=== PATIENT | male | born 1950 | race Caucasian/White ===

== ENCOUNTER 2020-03-17 11:53 | Inpatient (IN) | payer MEDICARE ==
[~2020-03-17] VITALS: Ht 182.9 cm; Wt 90.7 kg
[~2020-03-17 11:53] MED LIST changes: -CALCIUM 600 +1 EA13 PO; -CITRACAL + D E1 EACH PO; -DAILY VITE1 EACH PO; -HUMALOG 10100 UNITS/ SC; -HYDROCODON-ACE1 EAC2 PO; -HYDROCODONE-AC1 EAC1 PO; -JANUVIA25 MG PO; -LANTUS INS100 UTS/M1 SC; -MEDROL DOSEPAK 24 MG PO; -MELATONIN3 MG PO; -PROTONIX 40 MG40 M1 PO; -SODIUM BICARBO650 M1 PO; -ZESTRIL 40 MG T40 MG PO; -ZYVOX600 MG PO
[2020-03-17 12:10] LABS: RED BLOOD COUNT 3.1 M/UL (4.20-5.50); WHITE BLOOD COUNT 17.6 K/UL (4.5-11.0)
[2020-03-17 12:35] LABS: BUN/CREATININE RATIO 16 (0-10)
[2020-03-17] MEDS ORDERED: ZESTRIL 40 MG T40 MG PO (16:11)
[2020-03-17] MEDS ORDERED: LOPRESSOR 25 MG25 MG PO (16:12)
[2020-03-17] MEDS ORDERED: GLUCOPHAGE850 MG PO (16:12)
[2020-03-17] MEDS ORDERED: FLOMAX 0.4 MG0.4 MG PO (16:12)
[2020-03-17] MEDS ORDERED: AMARYL2 MG PO (16:13)
[2020-03-17] MEDS ORDERED: LIPITOR TAB 1010 MG PO (16:14)
[2020-03-17] MEDS ORDERED: DAILY VITE1 EACH PO (16:15)
[2020-03-17 18:42] LABS: BUN/CREATININE RATIO 17 (0-10)
[2020-03-18 02:11] LABS: HEMOGLOBIN 7.9 gm/dl (14.0-17.5); RED BLOOD COUNT 3.08 M/UL (4.20-5.50)
[2020-03-18 02:16] LABS: WHITE BLOOD COUNT 11.9 K/UL (4.5-11.0)
[2020-03-18 02:36] LABS: BUN/CREATININE RATIO 19 (0-10)
--- NOTE | 2020-03-18 18:43 | NUR ---
patient have dried feces all over his bilateral lower extrimities, in between toes, and bilateral finger nails. when patient arrived from the floor patient was on this condition. MORENA- alanna provided personal care to patient. patient satisfied and pleased with personal care.
[2020-03-19 04:12] LABS: HEMOGLOBIN 7.1 gm/dl (14.0-17.5); WHITE BLOOD COUNT 9.3 K/UL (4.5-11.0)
[2020-03-19 04:15] LABS: RED BLOOD COUNT 2.71 M/UL (4.20-5.50)
[2020-03-19 17:12] LABS: HEMOGLOBIN 9.3 gm/dl (14.0-17.5)
--- NOTE | 2020-03-19 23:04 | NUR ---
03/19/20 @ 1901 - MD NOTIFIED OF CHANGE IN PATIENT'S STATUS, B/P 87/54, HR 125, O2 SAT 85%, RESP RATE 20 AND TEMP 98.O F ORAL. MD INFORMED OF PATIENT'S MEDICAL HX AND ADMITTING DX. BG - 156. MD ORDERED 1 LITER BOLUS OF NS. 03/19/20 @ 4116 - MD NOTIFIED OF PATIENT'S STATUS. B/P DECREASED TO 77/50, HR REMAINS IN 120S. MINE INSPECTOR AT BEDSIDE WITH PATIENT. MD GIVES ORDERS TO TRANSFER TO ICU, START LEVOPHED DRIP AND TRANSFUSE 1 UNIT OF PRBC, NS @ 150ML/HR.
[2020-03-20 02:40] LABS: HEMOGLOBIN 9.1 gm/dl (14.0-17.5)
[2020-03-20 02:41] LABS: RED BLOOD COUNT 3.51 M/UL (4.20-5.50); WHITE BLOOD COUNT 24.2 K/UL (4.5-11.0)
[2020-03-20 09:30] LABS: HEMOGLOBIN 9.4 gm/dl (14.0-17.5)
[2020-03-21 02:07] LABS: HEMOGLOBIN 9.1 gm/dl (14.0-17.5); RED BLOOD COUNT 3.7 M/UL (4.20-5.50)
[2020-03-21 02:08] LABS: WHITE BLOOD COUNT 33.4 K/UL (4.5-11.0)
[2020-03-22 11:19] LABS: HEMOGLOBIN 8.2 gm/dl (14.0-17.5); RED BLOOD COUNT 3.18 M/UL (4.20-5.50); WHITE BLOOD COUNT 19.4 K/UL (4.5-11.0)
[2020-03-23 07:41] LABS: HEMOGLOBIN 7.9 gm/dl (14.0-17.5); RED BLOOD COUNT 3.08 M/UL (4.20-5.50); WHITE BLOOD COUNT 15.7 K/UL (4.5-11.0)
[2020-03-24 10:08] LABS: HEMOGLOBIN 8.3 gm/dl (14.0-17.5); RED BLOOD COUNT 3.25 M/UL (4.20-5.50)
[2020-03-25 07:04] LABS: HEMOGLOBIN 8.1 gm/dl (14.0-17.5); RED BLOOD COUNT 3.15 M/UL (4.20-5.50); WHITE BLOOD COUNT 10.3 K/UL (4.5-11.0)
[2020-03-25 07:11] LABS: ANTISTREPTOLYSIN O AB 209.3 IU/mL (0.0-200.0); COMPLEMENT C3, SERUM 94 mg/dL (82-167); COMPLEMENT C4, SERUM 19 mg/dL (12-38)
[2020-03-25 09:14] LABS: HBSAG SCREEN Negative (Negative); HEP B CORE AB, TOT Negative (Negative); HEP C VIRUS AB <0.1 (0.0-0.9)
[2020-03-25 14:14] LABS: ANTI-DSDNA ANTIBODIES <1 IU/mL (0-9)
[2020-03-25 15:14] LABS: A/G RATIO 0.7 (0.7-1.7); ALBUMIN 1.9 g/dL (2.9-4.4); ALPHA-1-GLOBULIN 0.4 g/dL (0.0-0.4); ALPHA-2-GLOBULIN 0.8 g/dL (0.4-1.0); BETA GLOBULIN 0.7 g/dL (0.7-1.3); GAMMA GLOBULIN 1.1 g/dL (0.4-1.8); GLOBULIN, TOTAL 2.9 g/dL (2.2-3.9); IMMUNOGLOBULIN A, QN, SERUM 296 mg/dL (61-437); IMMUNOGLOBULIN G, QN, SERUM 1032 mg/dL (603-1613); IMMUNOGLOBULIN M, QN, SERUM 72 mg/dL (20-172); M-SPIKE Comment: g/dL (Not Observed); PROTEIN, TOTAL, SERUM 4.8 g/dL (6.0-8.5)
[2020-03-26 15:14] LABS: ATYPICAL PANCA <1:20 titer (Neg:<1:20); PERINUCLEAR (P-ANCA) <1:20 titer (Neg:<1:20)
[2020-03-27] MEDS ORDERED: MELATONIN3 MG PO (11:36)
[2020-03-27 16:11] LABS: HEMATOCRIT 25.4 % (37.5-51.0)
[2020-03-28 03:28] LABS: RED BLOOD COUNT 2.72 M/UL (4.20-5.50); WHITE BLOOD COUNT 7.1 K/UL (4.5-11.0)
[2020-03-28 03:30] LABS: HEMOGLOBIN 6.8 gm/dl (14.0-17.5)
[2020-03-28 10:47] LABS: ADENOVIRUS F 40/41 Not Detected (Negative); ASTROVIRUS Not Detected (Negative); CAMPYLOBACTER Not Detected (Negative); CLOSTRIDIUM DIFFICILE TOX A/B Not Detected (Negative); CRYPTOSPORIDIUM Not Detected (Negative); E.COLI 0157 Not Detected (Negative); ENTAMOEBA HISTOLYTICA Not Detected (Negative); ENTEROAGGREGATIVE E.COLI (EAEC Not Detected (Negative); ENTEROPATHOGENIC E.COLI (EPEC) Not Detected (Negative); ENTEROTOXIGENIC E.COLI (ETEC) Not Detected (Negative); GIARDIA LAMBLIA Not Detected (Negative); NOROVIRUS GI/GII Not Detected (Negative); PLESIOMONAS SHIGELLOIDES Not Detected (Negative); ROTOVIRUS A Not Detected (Negative); SALMONELLA Not Detected (Negative); SAPOVIRUS Not Detected (Negative); SHIG/ENTEROINVAS.ECOLI (EIEC) Not Detected (Negative); SHIGA-LIK TOX.PRO.E.COLI (STEC Not Detected (Negative); VIBRIO Not Detected (Negative); VIBRIO CHOLERAE Not Detected (Negative); YERSINIA ENTEROCOLITICA Not Detected (Negative)
[2020-03-28 15:17] LABS: HEMOGLOBIN 7.9 gm/dl (14.0-17.5)
[2020-03-29 06:58] LABS: HEMOGLOBIN 7.8 gm/dl (14.0-17.5); RED BLOOD COUNT 3.03 M/UL (4.20-5.50); WHITE BLOOD COUNT 6.4 K/UL (4.5-11.0)
[2020-03-30 12:02] LABS: HEMOGLOBIN 8.2 gm/dl (14.0-17.5); RED BLOOD COUNT 3.18 M/UL (4.20-5.50); WHITE BLOOD COUNT 6.9 K/UL (4.5-11.0)
--- NOTE | 2020-03-30 17:11 | NUR ---
INFORMED DR LOWERY OF PT'S BLOODY STOOLS AND LABORED BREATHING, NEW ORDER REC'D
--- NOTE | 2020-03-31 00:45 | NUR ---
NOTICE PT DESAT ON THE MONITOR, ENTERED ROOM, PT WAS BREATHING, SNORING, AND BEGAN TO ANDREW DOWN TO THE 40'S. TRIED TO AROUSE PT VIA STERNAL RUBBING TO NO RESPONSE. PINPOINT PUPILS. PT ANDREW'ED TO 30'S, CALLED RAPID RESPONSE. NOTICED PT STOPPED BREATHING, CHECKED FOR PULSE, NONE, AND AR LIU INITATED CPR AT 0028. EFRAIN PHAM WAS CALLED AT SAME TIME. PT WAS ROLLED ONTO BOARD, PADS WERE PLACED AND SUCTION WAS SET UP. VENTILATION BEGAN 0029, CODE TEAM ARRIVED ON SITE CONSITING OF JESE FROM ICU, MARCELA WINKLER FROM ER, AND DR GUZMAN, WELL AIDA CLEMENTS, AND BRIAN FROM RESPIRATORY. PT SHOWED ASYSTOLE ON THE ZOLLS MONITOR. FIRST EPI WAS PUSHED AT 0030, FOLLOWED BY MORE COMPRESSIONS AND VENTILATION. ONE AMP OF BICARB WAS PUSHED AT 0032, FOLLOWED BY MORE EPI AT 0034. PULSE CHECK CAME BACK WITH A PULSE AT 0034. COMPRESSIONS STOPPED, PT NOT BREATHING ON HIS OWN. 40 UNITS OF VASOPRESSIN WAS GIVEN PRIOR TO PULSE CHECK, AT 0034. PT WAS SUCCESSFULLY INTUBATED AT 0035 BY JANUSZ GUZMAN TO CONFIRM PLACEMENT. ATROPINE PUSHED AT 0038. EKG GOTTEN AT 0040. PT WAS MOVED TO ICU BY 0045
--- NOTE | 2020-03-31 00:55 | NUR ---
REPORT GIVEN TO ANA LILIA IN ICU,
[2020-03-31 01:09] LABS: RED BLOOD COUNT 3.15 M/UL (4.20-5.50)
[2020-03-31 01:32] LABS: BUN/CREATININE RATIO 10 (0-10)
[2020-03-31 11:59] LABS: HEMOGLOBIN 7.3 gm/dl (14.0-17.5); RED BLOOD COUNT 2.86 M/UL (4.20-5.50)
[2020-03-31 12:07] LABS: WHITE BLOOD COUNT 9.6 K/UL (4.5-11.0)
[2020-03-31 13:10] LABS: M-SPIKE, % Not Observed % (Not Observed)
[2020-04-01 05:48] LABS: BUN/CREATININE RATIO 10 (0-10)
[2020-04-01 12:32] LABS: HEMOGLOBIN 7.6 gm/dl (14.0-17.5); RED BLOOD COUNT 2.98 M/UL (4.20-5.50); WHITE BLOOD COUNT 10.6 K/UL (4.5-11.0)
[2020-04-02 05:19] LABS: RED BLOOD COUNT 2.74 M/UL (4.20-5.50)
[2020-04-02 05:22] LABS: HEMOGLOBIN 6.6 gm/dl (14.0-17.5)
[2020-04-02 18:08] LABS: HEMOGLOBIN 7.7 gm/dl (14.0-17.5)
[2020-04-03 05:57] LABS: HEMOGLOBIN 8.1 gm/dl (14.0-17.5); WHITE BLOOD COUNT 8.5 K/UL (4.5-11.0)
[2020-04-03 05:59] LABS: RED BLOOD COUNT 3.11 M/UL (4.20-5.50)
[2020-04-04 05:05] LABS: HEMOGLOBIN 8.1 gm/dl (14.0-17.5); RED BLOOD COUNT 3.14 M/UL (4.20-5.50); WHITE BLOOD COUNT 7.4 K/UL (4.5-11.0)
[2020-04-05 05:00] LABS: HEMOGLOBIN 8.3 gm/dl (14.0-17.5); RED BLOOD COUNT 3.21 M/UL (4.20-5.50); WHITE BLOOD COUNT 7.3 K/UL (4.5-11.0)
[2020-04-06 05:53] LABS: HEMOGLOBIN 8.5 gm/dl (14.0-17.5); RED BLOOD COUNT 3.3 M/UL (4.20-5.50); WHITE BLOOD COUNT 8.4 K/UL (4.5-11.0)
[2020-04-06 16:45] LABS: HEMOGLOBIN 8.3 gm/dl (14.0-17.5)
[2020-04-07 05:10] LABS: HEMOGLOBIN 8.4 gm/dl (14.0-17.5); RED BLOOD COUNT 3.26 M/UL (4.20-5.50); WHITE BLOOD COUNT 10.4 K/UL (4.5-11.0)
[2020-04-07 11:00] LABS: HEMOGLOBIN 8.4 gm/dl (14.0-17.5)
[2020-04-08 04:52] LABS: HEMOGLOBIN 8.5 gm/dl (14.0-17.5); RED BLOOD COUNT 3.29 M/UL (4.20-5.50)
[2020-04-09 05:12] LABS: HEMOGLOBIN 7.7 gm/dl (14.0-17.5); RED BLOOD COUNT 3.02 M/UL (4.20-5.50); WHITE BLOOD COUNT 9.1 K/UL (4.5-11.0)
[2020-04-10 03:39] LABS: HEMOGLOBIN 7.8 gm/dl (14.0-17.5); RED BLOOD COUNT 3.06 M/UL (4.20-5.50); WHITE BLOOD COUNT 7.5 K/UL (4.5-11.0)
[2020-04-11 02:59] LABS: WHITE BLOOD COUNT 5.7 K/UL (4.5-11.0)
[2020-04-11 03:22] LABS: RED BLOOD COUNT 2.75 M/UL (4.20-5.50)
[2020-04-11 03:23] LABS: HEMOGLOBIN 7.1 gm/dl (14.0-17.5)
[2020-04-12 02:19] LABS: RED BLOOD COUNT 2.63 M/UL (4.20-5.50); WHITE BLOOD COUNT 6.9 K/UL (4.5-11.0)
[2020-04-12 02:32] LABS: HEMOGLOBIN 6.6 gm/dl (14.0-17.5)
[2020-04-13 02:26] LABS: RED BLOOD COUNT 3.43 M/UL (4.20-5.50); WHITE BLOOD COUNT 10.3 K/UL (4.5-11.0)
[2020-04-13 19:52] LABS: HEMOGLOBIN 8.9 gm/dl (14.0-17.5); RED BLOOD COUNT 3.33 M/UL (4.20-5.50); WHITE BLOOD COUNT 9.1 K/UL (4.5-11.0)
[2020-04-14 02:27] LABS: HEMOGLOBIN 9.1 gm/dl (14.0-17.5); RED BLOOD COUNT 3.42 M/UL (4.20-5.50); WHITE BLOOD COUNT 9.8 K/UL (4.5-11.0)
[2020-04-15 02:20] LABS: HEMOGLOBIN 9.3 gm/dl (14.0-17.5); RED BLOOD COUNT 3.42 M/UL (4.20-5.50); WHITE BLOOD COUNT 9.6 K/UL (4.5-11.0)
--- NOTE | 2020-04-15 15:36 | NUR ---
SPOKE WITH DR ASHER AND DR WELSH REGARDING PATIENT CONTINUING TO HAVE BLOODY STOOLS. HGB HAS BEEN CHECKED SINCE THEN AND ANOTHER RECHECK IS IN FOR [address] ASHER STATES THAT HE WILL NOT BE ABLE TO DO EGD TODAY OR TOMORROW DUE TO WEATHER AND WANTS THE PATIENT TO HAVE A 2.4 GRAM DIET UNTIL HE CAN HAVE THE PROCEDURE DONE AND HE WILL ORDER A CLEAR LIQUID DIET ONCE AGAIN BEFORE PROCEDURE IS TO BE DONE. A NURSING COMMUNICATION ORDER HAS BEEN PUT IN PER DR WELSH FOR THE PATIENT AND IT STATES THAT IF HGB DROPS ONE POINT FROM HGB NOW WHICH IS 9.6 OR IF PATIENT HAS MORE BLOODY BOWEL MOVEMENTS AND BECOMES HYPOTENSIVE THEN WE ARE TO TRANSFUSE 1 UNIT OF BLOOD. THE PATIENT HAS BEEN MADE AWARE OF THE ABOVE AND HAS STATED THAT HE UNDERSTANDS. PATIENT HAS WORKED WITH PT TODAY AND DONE WELL, GOT UP TO THE CHAIR AND REMAINS SITTING IN THE CHAIR AT THIS TIME. NO DISTRESS NOTED, PATIENT TOLERATED WELL. WILL CONTINUE TO MONITOR PATIENTS HGB AND NOTIFY MD IF NEEDED. CALL LAW WITHIN REACH.
[2020-04-17 09:02] LABS: HEMOGLOBIN 9.4 gm/dl (14.0-17.5); RED BLOOD COUNT 3.55 M/UL (4.20-5.50); WHITE BLOOD COUNT 11.3 K/UL (4.5-11.0)
[2020-04-20 08:32] LABS: RED BLOOD COUNT 3.42 M/UL (4.20-5.50); WHITE BLOOD COUNT 10.1 K/UL (4.5-11.0)
--- NOTE | 2020-04-20 10:33 | NUR ---
PT REFUSED GOLYTELY X 3 ATTEMPTS. EXPLAINED TO PATIENT WE COULD PLACE A NG TUBE SO HE WOULD NOT HAVE TO DRINK GOLYTELY AND HE STATES "THATS NOT AN OPTION EITHER". I EXPLAINED IMPORTANCE OF GOLYTELY AND PT STATES HE KNOWS AND WOULD THINK ABOUT IT BUT FOR NOW IT WAS A NO.
--- NOTE | 2020-04-20 13:22 | NUR ---
PT AGREES TO DRINK GOLYTELY A/O NOW, DR. ASHER ON FLOOR AND STATES GO AHEAD AND GIVE PER PREVIOUS ORDER
[2020-04-21 03:21] LABS: HEMOGLOBIN 8.8 gm/dl (14.0-17.5); RED BLOOD COUNT 3.34 M/UL (4.20-5.50); WHITE BLOOD COUNT 11.2 K/UL (4.5-11.0)
[2020-04-21 09:24] LABS: HEMOGLOBIN 10.3 gm/dl (14.0-17.5)
== END 2020-04-22 15:47 | disposition home or self-care (01) | DRG 698 ==
LOC: ER1 11:53 → CDU 14:04 → PROG CARE 14:04 → CCU 14:04 → PROG CARE 17:30 → M/S 03-18 11:25 → CCU 03-19 22:53 → PROG CARE 03-26 16:21 → CCU 03-31 01:39 → PROG CARE 04-10 09:08
PROVIDERS: Family Medicine; Internal Medicine; Internal Medicine Nephrology; Internal Medicine Pulmonary Disease; Physician Assistant; Registered Nurse; ADMIT Internal Medicine
PROC: 30233N1 Transfusion of Nonautologous Red Blood Cells into Peripheral Vein, Percutaneous Approach (ICD-10-PCS; 2020-03-19)
PROC: 30233N1 Transfusion of Nonautologous Red Blood Cells into Peripheral Vein, Percutaneous Approach (ICD-10-PCS; 2020-03-28)
PROC: 0BH17EZ Insertion of Endotracheal Airway into Trachea, Via Natural or Artificial Opening (ICD-10-PCS; 2020-03-31)
PROC: 5A1945Z Respiratory Ventilation, 24-96 Consecutive Hours (ICD-10-PCS; 2020-03-31)
PROC: 30233N1 Transfusion of Nonautologous Red Blood Cells into Peripheral Vein, Percutaneous Approach (ICD-10-PCS; 2020-04-02)
PROC: 02HV33Z Insertion of Infusion Device into Superior Vena Cava, Percutaneous Approach (ICD-10-PCS; principal; 2020-04-08)
PROC: B548ZZA Ultrasonography of Superior Vena Cava, Guidance (ICD-10-PCS; 2020-04-08)
PROC: 30233N1 Transfusion of Nonautologous Red Blood Cells into Peripheral Vein, Percutaneous Approach (ICD-10-PCS; 2020-04-12)
PROC: 0DJ08ZZ Inspection of Upper Intestinal Tract, Via Natural or Artificial Opening Endoscopic (ICD-10-PCS; 2020-04-18)
PROC: 0DBP8ZX Excision of Rectum, Via Natural or Artificial Opening Endoscopic, Diagnostic (ICD-10-PCS; 2020-04-18)
PROC: 0DBK8ZZ Excision of Ascending Colon, Via Natural or Artificial Opening Endoscopic (ICD-10-PCS; 2020-04-21)
PROC: 0DBN8ZZ Excision of Sigmoid Colon, Via Natural or Artificial Opening Endoscopic (ICD-10-PCS; 2020-04-21)
DX: T83.511A Infection and inflammatory reaction due to indwelling urethral catheter, initial encounter (principal); A41.9 Sepsis, unspecified organism; I50.23 Acute on chronic systolic (congestive) heart failure; J96.01 Acute respiratory failure with hypoxia; A41.51 Sepsis due to Escherichia coli [E. coli]; A41.52 Sepsis due to Pseudomonas; J81.0 Acute pulmonary edema; I46.9 Cardiac arrest, cause unspecified; N17.0 Acute kidney failure with tubular necrosis; N17.9 Acute kidney failure, unspecified; I13.0 Hypertensive heart and chronic kidney disease with heart failure and stage 1 through stage 4 chronic kidney disease, or unspecified chronic kidney disease; E87.1 Hypo-osmolality and hyponatremia; E87.2 Acidosis; K92.1 Melena; N13.30 Unspecified hydronephrosis; C20 Malignant neoplasm of rectum; N30.00 Acute cystitis without hematuria; D62 Acute posthemorrhagic anemia; E87.3 Alkalosis; R00.0 Tachycardia, unspecified; R80.9 Proteinuria, unspecified; Z20.822 Contact with and (suspected) exposure to COVID-19; E87.6 Hypokalemia; E11.22 Type 2 diabetes mellitus with diabetic chronic kidney disease; N18.30 Chronic kidney disease, stage 3 unspecified; E87.70 Fluid overload, unspecified; N40.1 Benign prostatic hyperplasia with lower urinary tract symptoms; I48.0 Paroxysmal atrial fibrillation; N13.9 Obstructive and reflux uropathy, unspecified; K57.90 Diverticulosis of intestine, part unspecified, without perforation or abscess without bleeding; N32.0 Bladder-neck obstruction; D50.9 Iron deficiency anemia, unspecified; R33.8 Other retention of urine; E78.5 Hyperlipidemia, unspecified; D47.2 Monoclonal gammopathy; D63.1 Anemia in chronic kidney disease; I95.9 Hypotension, unspecified; Z80.9 Family history of malignant neoplasm, unspecified; Z79.899 Other long term (current) drug therapy; Z83.3 Family history of diabetes mellitus; Z84.1 Family history of disorders of kidney and ureter
CPT/HCPCS: ECHO; 31500; 36415; 36430; 36600; 71045; 71046; 72195; 80048; 80053; 80069; 80202; 81001; 82272; 82378; 82436; 82533; 82550; 82553; 82570; 82607; 82728; 82747; 82784; 82803; 82962; 83010; 83520; 83540; 83550; 83605; 83615; 83735; 83883; 83921; 84100; 84132; 84133; 84155; 84156; 84165; 84166; 84300; 84439; 84443; 84484; 85014; 85018; 85025; 85027; 85045; 85610; 85730; 86038; 86060; 86140; 86160; 86162; 86225; 86256; 86334; 86335; 86704; 86706; 86708; 86803; 86850; 86900; 86901; 86920; 87040; 87070; 87077; 87086; 87186; 87205; 87340; 87449; 87507; 89050; 92950; 93005; 93306; 94002; 94003; 94640; 94660; 94760; 94762; 96365; 97110; 97110-GP-CQ; 97116; 97116-GP-CQ; 97163; 97164; 97165; 97168; 97530; 97530-GP-CQ; 97535; 99285; A6212; C9113; J0171; J0461; J0696; J1120; J1205; J1644; J1720; J1940; J1956; J2060; J2250; J2270; J2543; J2704; J3010; J3370; J3475; J7030; J7040; J7050; J7070; P9016; P9047; U0002

== ENCOUNTER → 2020-03-17 | Day surgery (SDC) | payer MEDICARE ==
[~2020-03-17] MED LIST: AMARYL2 MG PO; AUGMENTIN 875-1 EACH PO; CALCIUM 600 +1 EA13 PO; CALCIUM500 MG PO; CITRACAL + D E1 EACH PO; DAILY VITE1 EACH PO; DOK PLUS TABLE1 EACH PO; FLOMAX 0.4 MG0.4 MG PO; GLUCOPHAGE500 MG PO; GLUCOPHAGE850 MG PO; HUMALOG 10100 UNITS/ SC; HYDROCODON-ACE1 EAC2 PO; HYDROCODONE-AC1 EAC1 PO; JANUVIA25 MG PO; JANUVIA50 MG PO; LANTUS INS100 UTS/M1 SC; LIPITOR TAB 1010 MG PO; LISINOPRIL40 MG PO; LOPRESSOR 25 MG25 MG PO; MEDROL DOSEPAK 24 MG PO; MELATONIN3 MG PO; MIRALAX17 GM PO; PRINIVIL10 MG PO; PROTONIX 40 MG40 M1 PO; SODIUM BICARBO650 M1 PO; THERAGRAN M TAB1 EA PO; VICODIN ES 7.51 EACH PO; VITAMIN D350000 UNIT PO; ZESTRIL 40 MG T40 MG PO; ZOSYN 4.54.5 GM/100 IV; ZYVOX600 MG PO
== END | disposition home or self-care (01) ==
LOC: OR 10:38
DX: I95.9 Hypotension, unspecified (principal); R33.9 Retention of urine, unspecified; T83.511A Infection and inflammatory reaction due to indwelling urethral catheter, initial encounter; N13.6 Pyonephrosis; B96.20 Unspecified Escherichia coli [E. coli] as the cause of diseases classified elsewhere; T83.021A Displacement of indwelling urethral catheter, initial encounter; N17.9 Acute kidney failure, unspecified; E87.2 Acidosis; R19.7 Diarrhea, unspecified; E11.9 Type 2 diabetes mellitus without complications; I10 Essential (primary) hypertension; E78.5 Hyperlipidemia, unspecified; N40.1 Benign prostatic hyperplasia with lower urinary tract symptoms; N13.8 Other obstructive and reflux uropathy; E27.8 Other specified disorders of adrenal gland; K31.89 Other diseases of stomach and duodenum; J81.1 Chronic pulmonary edema; J90 Pleural effusion, not elsewhere classified; J96.01 Acute respiratory failure with hypoxia; B96.5 Pseudomonas (aeruginosa) (mallei) (pseudomallei) as the cause of diseases classified elsewhere; D50.9 Iron deficiency anemia, unspecified; R55 Syncope and collapse; I48.91 Unspecified atrial fibrillation; R00.1 Bradycardia, unspecified; I45.10 Unspecified right bundle-branch block; Z53.8 Procedure and treatment not carried out for other reasons; Z20.822 Contact with and (suspected) exposure to COVID-19; Y84.6 Urinary catheterization as the cause of abnormal reaction of the patient, or of later complication, without mention of misadventure at the time of the procedure
CPT/HCPCS: 82962

== ENCOUNTER 2020-04-25 03:19 | Inpatient (IN) | payer MEDICARE ==
[~2020-04-25] VITALS: Ht 182.9 cm
[~2020-04-25 03:19] MED LIST changes: +DAILY VITE1 EACH PO; +MELATONIN3 MG PO; +ZESTRIL 40 MG T40 MG PO
[2020-04-25 04:07] LABS: HEMOGLOBIN 8.8 gm/dl (14.0-17.5); RED BLOOD COUNT 3.36 M/UL (4.20-5.50); WHITE BLOOD COUNT 7.8 K/UL (4.5-11.0)
[2020-04-25] MEDS ORDERED: HYDROCODON-ACE1 EAC2 PO (13:31)
[2020-04-25] MEDS ORDERED: ZESTRIL 40 MG T40 MG PO (13:32)
[2020-04-25] MEDS ORDERED: MELATONIN3 MG PO (13:37)
[2020-04-25] MEDS ORDERED: CALCIUM 600 +1 EA13 PO (16:11)
[2020-04-26 03:25] LABS: HEMOGLOBIN 7.8 gm/dl (14.0-17.5); WHITE BLOOD COUNT 8.4 K/UL (4.5-11.0)
[2020-04-26 03:33] LABS: RED BLOOD COUNT 2.98 M/UL (4.20-5.50)
[2020-04-27 02:53] LABS: RED BLOOD COUNT 3.05 M/UL (4.20-5.50)
[2020-04-27 02:57] LABS: WHITE BLOOD COUNT 5.7 K/UL (4.5-11.0)
[2020-04-28 02:11] LABS: RED BLOOD COUNT 3.33 M/UL (4.20-5.50); WHITE BLOOD COUNT 6.2 K/UL (4.5-11.0)
[2020-04-28] MEDS ORDERED: JANUVIA25 MG PO (09:56)
[2020-04-29] MEDS ORDERED: LOPRESSOR 25 MG25 MG PO (10:47)
== END 2020-04-29 15:48 | disposition home or self-care (01) | DRG 682 ==
LOC: ER1 03:19 → CDU 05:05 → M/S 07:07 → PROG CARE 20:30 → M/S 04-28 17:41
PROVIDERS: Emergency Medicine; Family Medicine; Internal Medicine Nephrology; ADMIT Internal Medicine
PROC: 8E0ZXY6 Isolation (ICD-10-PCS; principal; 2020-04-25)
PROC: 30233N1 Transfusion of Nonautologous Red Blood Cells into Peripheral Vein, Percutaneous Approach (ICD-10-PCS; 2020-04-26)
DX: N17.9 Acute kidney failure, unspecified (principal); U07.1 COVID-19; J96.01 Acute respiratory failure with hypoxia; C20 Malignant neoplasm of rectum; D62 Acute posthemorrhagic anemia; E87.2 Acidosis; I13.0 Hypertensive heart and chronic kidney disease with heart failure and stage 1 through stage 4 chronic kidney disease, or unspecified chronic kidney disease; I50.32 Chronic diastolic (congestive) heart failure; E11.649 Type 2 diabetes mellitus with hypoglycemia without coma; T38.3X5A Adverse effect of insulin and oral hypoglycemic [antidiabetic] drugs, initial encounter; N13.30 Unspecified hydronephrosis; I10 Essential (primary) hypertension; E11.22 Type 2 diabetes mellitus with diabetic chronic kidney disease; N18.30 Chronic kidney disease, stage 3 unspecified; N13.9 Obstructive and reflux uropathy, unspecified; N32.0 Bladder-neck obstruction; Z79.899 Other long term (current) drug therapy; I48.0 Paroxysmal atrial fibrillation; I45.10 Unspecified right bundle-branch block; Z80.9 Family history of malignant neoplasm, unspecified; N40.1 Benign prostatic hyperplasia with lower urinary tract symptoms; R33.8 Other retention of urine; D50.9 Iron deficiency anemia, unspecified; Z53.29 Procedure and treatment not carried out because of patient's decision for other reasons
CPT/HCPCS: 0240U; 36415; 36430; 36600; 71045; 80048; 80053; 81001; 82550; 82553; 82803; 82962; 83036; 83605; 85025; 86850; 86900; 86901; 86920; 96374; 97162; 97166; 99285; J1100; J1644; P9016; P9047

== ENCOUNTER 2020-05-01 00:50 | Inpatient (IN) | payer MEDICARE ==
[~2020-05-01] VITALS: Ht 182.9 cm; Wt 87.0 kg
[~2020-05-01 00:50] MED LIST changes: +CALCIUM 600 +1 EA13 PO; +HYDROCODON-ACE1 EAC2 PO; +JANUVIA25 MG PO
[2020-05-01 01:33] LABS: HEMOGLOBIN 11.3 gm/dl (14.0-17.5); RED BLOOD COUNT 4.23 M/UL (4.20-5.50); WHITE BLOOD COUNT 15.2 K/UL (4.5-11.0)
[2020-05-01 02:05] LABS: BUN/CREATININE RATIO 18 (0-10)
[2020-05-01 05:51] LABS: HEMOGLOBIN 13.9 gm/dl (14.0-17.5); RED BLOOD COUNT 5.06 M/UL (4.20-5.50); WHITE BLOOD COUNT 6.7 K/UL (4.5-11.0)
[2020-05-01] MEDS ORDERED: CITRACAL + D E1 EACH PO (09:33)
[2020-05-01] MEDS ORDERED: HYDROCODONE-AC1 EAC1 PO (09:33)
[2020-05-01] MEDS ORDERED: MELATONIN3 MG PO (09:34)
[2020-05-01 14:58] LABS: ACINETOBACTER BAUMANNII Not Detected (Negative); CANDIDA ALBICANS Not Detected (Negative); CANDIDA KRUSEI Not Detected (Negative); CANDIDA TROPICALIS Not Detected (Negative); ESCHERICHIA COLI Not Detected (Negative); HAEMOPHILUS INFLUENZAE Not Detected (Negative); KLEBSIELLA OXYTOCA Not Detected (Negative); KLEBSIELLA PNEUMONIAE Not Detected (Negative); KPC-CARBAPENEM-RESISTANCE GENE Not Detected (Negative); PROTEUS Not Detected (Negative); PSEUDOMONAS AERUGINOSA Not Detected (Negative); SERRATIA MARCESANS Not Detected (Negative); STAPHYLOCOCCUS Not Detected (Negative); STAPHYLOCOCCUS AUREUS Not Detected (Negative); STREP AGALACTIAE (GROUP B) Not Detected (Negative); STREP PYOGENES (GROUP A) Not Detected (Negative); STREPTOCOCCUS Not Detected (Negative); mecA (METHICILLIN RESIST GENE Not Detected (Negative)
[2020-05-01 16:22] LABS: ENTEROCOCCUS DETECTED (Negative); vanA/B (VANCOMYCIN RESIST GENE DETECTED (Negative)
[2020-05-02 05:40] LABS: HEMOGLOBIN 12.3 gm/dl (14.0-17.5)
[2020-05-02 05:44] LABS: RED BLOOD COUNT 4.52 M/UL (4.20-5.50); WHITE BLOOD COUNT 18.8 K/UL (4.5-11.0)
[2020-05-03 05:39] LABS: HEMOGLOBIN 11.1 gm/dl (14.0-17.5); RED BLOOD COUNT 4.11 M/UL (4.20-5.50)
[2020-05-03 05:44] LABS: WHITE BLOOD COUNT 10.4 K/UL (4.5-11.0)
[2020-05-04 05:40] LABS: HEMOGLOBIN 11.2 gm/dl (14.0-17.5); RED BLOOD COUNT 4.15 M/UL (4.20-5.50); WHITE BLOOD COUNT 10.6 K/UL (4.5-11.0)
[2020-05-05 05:31] LABS: HEMOGLOBIN 11.3 gm/dl (14.0-17.5); RED BLOOD COUNT 4.25 M/UL (4.20-5.50); WHITE BLOOD COUNT 11.9 K/UL (4.5-11.0)
[2020-05-06 03:06] LABS: HEMOGLOBIN 11.3 gm/dl (14.0-17.5); RED BLOOD COUNT 4.23 M/UL (4.20-5.50); WHITE BLOOD COUNT 11.7 K/UL (4.5-11.0)
[2020-05-07 07:03] LABS: RED BLOOD COUNT 4.11 M/UL (4.20-5.50); WHITE BLOOD COUNT 12.2 K/UL (4.5-11.0)
[2020-05-09] MEDS ORDERED: PROTONIX 40 MG40 M1 PO (13:57)
[2020-05-09] MEDS ORDERED: LANTUS INS100 UTS/M1 SC (13:57)
[2020-05-09] MEDS ORDERED: HUMALOG 10100 UNITS/ SC (13:57)
[2020-05-09] MEDS ORDERED: HYDROCODONE-AC1 EAC1 PO (13:58)
[2020-05-11 04:19] LABS: HEMOGLOBIN 9.9 gm/dl (14.0-17.5); RED BLOOD COUNT 3.74 M/UL (4.20-5.50); WHITE BLOOD COUNT 10.6 K/UL (4.5-11.0)
[2020-05-12 02:23] LABS: HEMOGLOBIN 9.4 gm/dl (14.0-17.5); RED BLOOD COUNT 3.52 M/UL (4.20-5.50); WHITE BLOOD COUNT 9.6 K/UL (4.5-11.0)
--- NOTE | 2020-05-12 12:20 | NUR ---
WANTS FLUIDS GOING IN AT 100ML/HR UNTIL HE GOES HOME. AND STATED THAT HE WILL HAVE TO GO HOME WITH THE CATHETER DUE TO HIS REOCCURING ACUTE KIDNEY FAILURE.
--- NOTE | 2020-05-12 17:59 | NUR ---
PT BECAME CONFUSED AND THOUGHT WE WERE HOLDING HIM IN [facility]. OF RIGHT NOW WE STILL HAVE JUSTIN ADMITTED DUE TO THE FAMILY NOT BEING ABLE TO MAKE A DECISION ON WHERE HE WILL BE STAYING AND WHO WITH. THE PATIENT GOES IN AND OUT OF FOCUS. PT ALSO CALLED 911 AND TOLD THEM THAT WE WERE HOLDING HIM HOSTAGE. THE PATIENT WOULD BE ABLE TO LEAVE IF THE FAMILY WOULD STATE THAT THEY HAVE A PLAN FOR HIM WHEN HE GETS DISCHARGED. CASE MANAGEMENT PLANS ON TALKING TO THE FAMILY TOMORROW TO COME TO A DECISION.
[2020-05-13 02:39] LABS: RED BLOOD COUNT 3.4 M/UL (4.20-5.50); WHITE BLOOD COUNT 11.8 K/UL (4.5-11.0)
[2020-05-13] MEDS ORDERED: ZYVOX600 MG PO (15:30)
[2020-05-13] MEDS ORDERED: MEDROL DOSEPAK 24 MG PO (15:41)
[2020-05-13] MEDS ORDERED: SODIUM BICARBO650 M1 PO (15:41)
--- NOTE | 2020-05-13 18:09 | NUR ---
WHILE I WAS IN 6104 HELPING MYRON CATCH UP ON HER WORK SHE RAN BACK THERE AND GOT ME TO TELL ME THAT 6102 HAD CAME OUT OF HIS ROOM AND FELL IN THE HALLWAY ON TOP OF THI. WHEN I APPROACHED I SEEN THI AND KAREN GETTING HIM INTO THE CHAIR TO ROLL HIM BACK INTO THE ROOM. WE THEN HAD TO PICK HIM UP AND PUT HIM BACK INTO THE BED. I ASKED THE PATIENT WHY HE WAS TRYING TO WALK OUT OF HIS ROOM AND HE STATED THAT HE WAS GOING TO GET A TAXI BECAUSE NO ONE WAS COMING AFTER HIM. THE PATIENT WAS UPSET WITH HIMSELF BECAUSE HE FELL AND DIDNT SAY ANYTHING ELSE OTHER THAN THAT. ON ASSESSMENT THE PATIENT HAD A SKIN TEAR ON HIS RIGHT ELBOW AREA. THE PATIENT STATED HIMSELF HE DID NOT FALL AND HIT HIS HEAD MORE THAN ONCE. THE PATIENT ALSO MENTIONED THAT HIS LEG WAS HURTING. I ASKED HIM TO LIFT HIS LEG UP TO SEE IF IT HURT HE STATED IT HURT. I THEN CALLED SHELLY AND SHE CAME TO SEE HIM. SHE OFFERED STERI STRIPS TO HELP WITH THE SKIN TEAR AND AN X-RAY OF HIS LEG. HE THEN SAID HE WAS GOING TO STAY HERE BECAUSE HE HAD NO RIDE. PT WAS STABLE AND HAD NO OTHER COMPLAINTS.
== END 2020-05-13 20:45 | disposition left against medical advice (07) | DRG 870 ==
LOC: ER1 00:50 → PROG CARE 02:50 → CDU 02:50 → CCU 02:50 → PROG CARE 05-07 15:24
PROVIDERS: Internal Medicine; Internal Medicine Nephrology; Internal Medicine Pulmonary Disease; Physician Assistant; ADMIT Internal Medicine
PROC: 5A1955Z Respiratory Ventilation, Greater than 96 Consecutive Hours (ICD-10-PCS; principal; 2020-05-01)
PROC: 8E0ZXY6 Isolation (ICD-10-PCS; 2020-05-01)
PROC: 0BH17EZ Insertion of Endotracheal Airway into Trachea, Via Natural or Artificial Opening (ICD-10-PCS; 2020-05-01)
PROC: 30233N1 Transfusion of Nonautologous Red Blood Cells into Peripheral Vein, Percutaneous Approach (ICD-10-PCS; 2020-05-01)
PROC: B24BZZZ Ultrasonography of Heart with Aorta (ICD-10-PCS; 2020-05-04)
PROC: 30233N1 Transfusion of Nonautologous Red Blood Cells into Peripheral Vein, Percutaneous Approach (ICD-10-PCS; 2020-05-04)
DX: A41.02 Sepsis due to Methicillin resistant Staphylococcus aureus (principal); R65.21 Severe sepsis with septic shock; J96.01 Acute respiratory failure with hypoxia; N17.0 Acute kidney failure with tubular necrosis; G93.41 Metabolic encephalopathy; U07.1 COVID-19; J12.82 Pneumonia due to coronavirus disease 2019; I50.33 Acute on chronic diastolic (congestive) heart failure; K62.5 Hemorrhage of anus and rectum; C20 Malignant neoplasm of rectum; N18.4 Chronic kidney disease, stage 4 (severe); N13.30 Unspecified hydronephrosis; Z16.21 Resistance to vancomycin; E87.2 Acidosis; N30.00 Acute cystitis without hematuria; I13.0 Hypertensive heart and chronic kidney disease with heart failure and stage 1 through stage 4 chronic kidney disease, or unspecified chronic kidney disease; A41.89 Other specified sepsis; I48.0 Paroxysmal atrial fibrillation; R33.9 Retention of urine, unspecified; D47.2 Monoclonal gammopathy; I45.10 Unspecified right bundle-branch block; E78.5 Hyperlipidemia, unspecified; A41.81 Sepsis due to Enterococcus; E88.09 Other disorders of plasma-protein metabolism, not elsewhere classified; D69.59 Other secondary thrombocytopenia; E11.22 Type 2 diabetes mellitus with diabetic chronic kidney disease; L89.151 Pressure ulcer of sacral region, stage 1; L89.326 Pressure-induced deep tissue damage of left buttock; R53.1 Weakness; B95.2 Enterococcus as the cause of diseases classified elsewhere; N28.81 Hypertrophy of kidney; E11.649 Type 2 diabetes mellitus with hypoglycemia without coma; D64.9 Anemia, unspecified; I95.9 Hypotension, unspecified; Y95 Nosocomial condition; E87.6 Hypokalemia; Z90.49 Acquired absence of other specified parts of digestive tract; Z79.899 Other long term (current) drug therapy; Z80.9 Family history of malignant neoplasm, unspecified
CPT/HCPCS: ECHO; 0240U; 31500; 36415; 36430; 36600; 51702; 71045; 74018; 80048; 80053; 80202; 81001; 82270; 82550; 82553; 82728; 82803; 82962; 83605; 83615; 83690; 83735; 83874; 84100; 84132; 84484; 85018; 85025; 85027; 85379; 85384; 85610; 85730; 86140; 86850; 86900; 86901; 86920; 87040; 87077; 87086; 87150; 87186; 92526; 92610; 93005; 93306; 94003; 94660; 94760; 96365; 96375; 97110-GP-CQ; 97162; 97166; 97530; 97530-GP-CQ; 99285; C9113; J0295; J0360; J1100; J1644; J1940; J2020; J2250; J2543; J2704; J3370; J3475; J3480; J3486; J7030; J7050; J7070; P9016; P9047

== ENCOUNTER 2020-05-14 01:04 | Emergency (ER) | payer MEDICARE ==
[~2020-05-14 01:04] MED LIST changes: +CITRACAL + D E1 EACH PO; +HUMALOG 10100 UNITS/ SC; +HYDROCODONE-AC1 EAC1 PO; +LANTUS INS100 UTS/M1 SC; +MEDROL DOSEPAK 24 MG PO; +PROTONIX 40 MG40 M1 PO; +SODIUM BICARBO650 M1 PO; +ZYVOX600 MG PO
[2020-05-14 02:42] LABS: HEMOGLOBIN 9.8 gm/dl (14.0-17.5); RED BLOOD COUNT 3.62 M/UL (4.20-5.50)
[2020-05-14 02:43] LABS: WHITE BLOOD COUNT 23.9 K/UL (4.5-11.0)
== END 2020-05-14 09:35 | disposition short-term general hospital (02) ==
LOC: ER1 01:04
PROVIDERS: Emergency Medicine
DX: U07.1 COVID-19 (principal); I62.9 Nontraumatic intracranial hemorrhage, unspecified; E11.649 Type 2 diabetes mellitus with hypoglycemia without coma; R90.0 Intracranial space-occupying lesion found on diagnostic imaging of central nervous system
CPT/HCPCS: 70450; 71045; 80053; 82962; 83605; 83735; 84100; 85025; 87040; 96374; 99285; J7030; U0002